=== PATIENT | male | born 1940 | race Caucasian/White ===

== ENCOUNTER 2018-01-21 16:25 | Inpatient (IN) | payer MEDICARE, OTHER ==
[~2018-01-21] VITALS: Ht 167.6 cm; Wt 72.6 kg
--- NOTE | 2018-01-21 16:35 | NUR ---
BBRA FROM HOME FOR S/P FALL, ON THE GROUND X 6HRS, C/O WEAKNESS AND DIZZINESS. PATIENT IS A/OX 4. BREATHING EVEN AND UNLABORED. NO SOB, NAD, VITALS STABLE. NO NEURO DEFICITS NOTED. SAFETY AND COMFORT MEASURES IN PLACE. AWAITING MD ORDERS.
--- NOTE | 2018-01-21 17:05 | NUR ---
NEW IV STARTED ON LAC, 18G. BLOOD DRAWN AND SENT TO LAB.
[2018-01-21 17:24] LABS: BASOPHILS # (AUTO) 0.1 /CMM (0.0-0.2); BASOPHILS % (AUTO) 0.5 % (0.0-2.0); EOSINOPHILS % (AUTO) 0.2 % (0.0-6.0); HEMATOCRIT 45 % (39-51); HEMOGLOBIN 14.4 g/dL (13.5-17.5); LYMPHOCYTES # (AUTO) 0.6 /CMM (0.8-4.8); MEAN CORPUSCULAR HEMOGLOBIN 23 PG (26.0-33.0); MEAN CORPUSCULAR HGB CONC 32 g/dl (31.0-36.0); MEAN CORPUSCULAR VOLUME 72 fL (80-96); MONOCYTES % (AUTO) 5.4 % (2.0-12.0); NEUTROPHILS # (AUTO) 17.5 /CMM (1.8-8.9); NEUTROPHILS % (AUTO) 90.9 % (43.0-81.0); PLATELET COUNT (AUTO) 351 /CMM (150-450); RDW COEFFICIENT OF VARIATION 16.9 (11.5-15.0); RED BLOOD CELL COUNT(AUTO) 6.24 MIL/uL (4.5-6.0); WHITE BLOOD COUNT (AUTO) 19.2 K/uL (4.3-11.0)
[2018-01-21 17:28] LABS: CALCIUM, SERUM 8.9 mg/dL (8.5-10.1); CARBON DIOXIDE 26 mmol/L (21-32); CHLORIDE 105 mmol/L (98-107); CREATININE 1.2 mg/dL (0.6-1.3); GLUCOSE 94 mg/dL (74-106); POTASSIUM 3.6 mmol/L (3.5-5.1); SODIUM SERUM 140 mmol/L (136-145); UREA NITROGEN, BLOOD 19 mg/dL (7-18)
[2018-01-21] MEDS ORDERED: ALBUTEROL FS 2.5 MG/0.5 ML VIAL.NEB NEB ONE (17:30)
[2018-01-21] MEDS ORDERED: IPRATROPIUM NEB FS 0.5 MG/2.5 ML AMPUL.NEB NEB ONE (17:30)
[2018-01-21 17:32] LABS: INR 1.02 (0.85-1.15)
[2018-01-21 17:34] LABS: ALANINE AMINOTRANSFERASE 13 U/L (12-78); ALKALINE PHOSPHATASE 66 U/L (46-116); ASPARTATE AMINOTRANSFERASE 18 U/L (15-37); BILIRUBIN,DIRECT 0.2 mg/dL (0.0-0.2); BILIRUBIN,TOTAL 0.9 mg/dL (0.2-1.0); TOTAL PROTEIN, SERUM 6.7 g/dL (6.4-8.2)
[2018-01-21] MEDS ORDERED: IPRATROPIUM NEB FS 0.5 MG/2.5 ML AMPUL.NEB ONE (17:38)
[2018-01-21] MEDS ORDERED: ALBUTEROL FS 2.5 MG/3 ML VIAL.NEB ONE (17:38)
--- NOTE | 2018-01-21 17:40 | NUR ---
RT AT BEDSIDE FOR BREATHING TX.
[2018-01-21 18:05] LABS: BAND % (MANUAL) 1 % (0.0-5.0); LYMPHOCYTES % (MANUAL) 4 % (16-48); MONOCYTES % (MANUAL) 9 % (0-11.0); NEUTROPHILS % (MANUAL) 86 (42-76)
[2018-01-21] MEDS ORDERED: CEFTRIAXONE 1 G in IV D5W 50 ML IV ONE (18:30)
[2018-01-21] MEDS ORDERED: AZITHROMYCIN 500 MG in IV D5W 250 ML IV ONE (18:30)
[2018-01-21] MEDS ORDERED: CEFTRIAXONE 1GM BAG (ER ONLY) 50 ML IV ONE (18:36)
[2018-01-21] MEDS ORDERED: FLUO20CA36 PO (18:45)
[2018-01-21] MEDS ORDERED: OMEP40CA37 PO (18:45)
[2018-01-21] MEDS ORDERED: FLUT1DIS3 IH (18:45)
[2018-01-21] MEDS ORDERED: DIVA500T54 PO (18:45)
[2018-01-21] MEDS ORDERED: MECL-102 PO (18:45)
[2018-01-21] MEDS ORDERED: FLUT16SP BNOSTRILS (18:45)
[2018-01-21] MEDS ORDERED: HYDR500C2 PO (18:45)
[2018-01-21] MEDS ORDERED: BUPR-96 PO (18:45)
[2018-01-21] MEDS ORDERED: ALPR0.255 PO (18:45)
--- NOTE | 2018-01-21 18:53 | NUR ---
RECEIVED VERBAL ADMITTING ORDERS FROM DR. CAVANAUGH.
[2018-01-21 19:11] LABS: ALANINE AMINOTRANSFERASE 10 U/L (12-78); ALBUMIN 2.9 g/dL (3.4-5.0); ALKALINE PHOSPHATASE 58 U/L (46-116); ASPARTATE AMINOTRANSFERASE 19 U/L (15-37); BILIRUBIN,DIRECT 0.2 mg/dL (0.0-0.2); TOTAL PROTEIN, SERUM 6.4 g/dL (6.4-8.2)
[2018-01-21 19:14] LABS: TROPONIN I < 0.017 ng/mL (0.00-0.056)
--- NOTE | 2018-01-21 19:15 | NUR ---
REPORT GIVEN TO DEREK STOREY FOR TESFAYE.
[2018-01-21 19:18] LABS: APPEARANCE,URINE Cloudy (CLEAR); BILIRUBIN,URINE SMALL (NEGATIVE); BLOOD, URINE Negative Ery/uL (NEGATIVE); COLOR,URINE Other (YELLOW); KETONES,URINE Trace (NEGATIVE); LEUKOCYTE ESTERASE ,URINE Negative (NEGATIVE); NITRITE, URINE Negative (NEGATIVE); PH,URINE 6.5 (5.0-8.0); PROTEIN,URINE 30 mg/dl (NEGATIVE); UGLUCOSE Negative (NEGATIVE)
[2018-01-21 19:23] LABS: BACTERIA,URINE Rare /HPF (None Seen); RBC,URINE NONE SEEN /HPF (0-2); SQUAMOUS EPITHELIAL CELL,UR Few /HPF (None Seen); WBC,URINE NONE SEEN /HPF (0-3)
[2018-01-21 20:50] VITALS: BP 110/71
[2018-01-21 21:00] VITALS: BP 110/71
--- NOTE | 2018-01-21 21:00 | NUR ---
RN ADMITTING NOTES RECEIVED REPORT OPERATIONS CONSULTANTCORDELIA FINCH. Pt ARRIVED TO FLOOR VIA GURNEY. Pt IS A/OX4, VERBAL, ABLE TO MAKE NEEDS KNOWN. NO S/S OF ACUTE DISTRESS OR SEVERE SOB NOTED. ON TELE. IV ACCESS ON LAC #18G. SAFETY MEASURES IN PLACE. BED LOW, LOCKED, HOB ELEVATED, SIDE RAILS UP, CALL LIGHT AND BEDSIDE TABLE WITHIN REACH. WILL CONTINUE TO MONITOR Pt THROUGHOUT THE NIGHT FOR SAFETY.
[2018-01-21] MEDS ORDERED: HYDROCODONE/APAP 5/325MG 1 EACH TABLET PO PRN (23:30)
[2018-01-21] MEDS ORDERED: ACETAMINOPHEN 325 MG TABLET PO PRN (23:30)
[2018-01-21] MEDS: Potassium Chloride 20 MEQ in IV NS 0.9% 1,000 ML IV SCH (23:30)
[2018-01-22] VITALS (7 sets, daily range): BP systolic 98–112; BP diastolic 52–65
[2018-01-22] MEDS ORDERED: PIPERACILLIN /TAZOBACTAM 3.375 G VIAL IV ONE ×2 (00:23→06:03)
[2018-01-22] MEDS ORDERED: IV PREMIX NS +20MEQ KCL 1 L IV ONE (00:37)
[2018-01-22] MEDS ORDERED: ALBUTEROL FS 2.5 MG/0.5 ML VIAL.NEB NEB PRN (02:00)
[2018-01-22] MEDS ORDERED: IPRATROPIUM NEB FS 0.5 MG/2.5 ML AMPUL.NEB NEB PRN (02:00)
[2018-01-22] MEDS ORDERED: ALPRAZOLAM 0.25 MG TABLET PO PRN ×2 (04:30→08:30)
[2018-01-22] MEDS ORDERED: MECLIZINE HCL 12.5 MG TABLET PO PRN (04:30)
[2018-01-22] MEDS: PIPERACILLIN /TAZOBACTAM 3.375 G in IV D5W 50 ML IV SCH ×6 (06:18→23:34)
--- NOTE | 2018-01-22 06:41 | NUR ---
RN CLOSING NOTES NO SIGNIFICANT CHANGES IN Pt's CONDITION. Pt REMAINS IN STABLE CONDITION DURING THIS TIME. NO S/S OF ACUTE DISTRESS OR SEVERE SOB NOTED DURING THE NIGHT. TELE READING SR 94. ALL NEEDS MET AND ATTENDED TO. SAFETY MEASURES IN PLACE. WILL ENDORSE TO DAYSHIFT RN FOR Pt's TESFAYE.
--- NOTE | 2018-01-22 07:15 | NUR ---
FAC ENGINEER OPENING NOTES. PT RECEIVED A&0X3, AWAKE AND RESTING IN BED. PT WITH O2 VIA NC AT 2LPM, SAO2 94%, PT ENCOURAGED TO DEEP BREATHE AND COUGH. PT AUSCULTATED WITH R SIDE RHONCHI. PT DENIES SOB BUT REPORTS SOME PLEURITIC PAIN. PT WITH IVC AT LAC G#18 INTACT AND OPERATIONAL. PT BED IN LOWEST LOCKED POSITION WITH HANDRAILSX2 AND CALL GUZMÁN WITHIN REACH. PT BRIEFED ON TODAY'S POC AND IS WITHOUT CONCERN OR COMPLAINT AT THIS TIME.
[2018-01-22 07:51] LABS: HEMATOCRIT 38 % (39-51); HEMOGLOBIN 12.2 g/dL (13.5-17.5); LYMPHOCYTES # (AUTO) 1.1 /CMM (0.8-4.8); LYMPHOCYTES % (AUTO) 4.5 % (20.0-44.0); MEAN CORPUSCULAR HEMOGLOBIN 23 PG (26.0-33.0); MEAN CORPUSCULAR HGB CONC 32 g/dl (31.0-36.0); MEAN CORPUSCULAR VOLUME 72 fL (80-96); MONOCYTES # (AUTO) 0.8 /CMM (0.1-1.30); MONOCYTES % (AUTO) 3.5 % (2.0-12.0); NEUTROPHILS # (AUTO) 22.1 /CMM (1.8-8.9); PLATELET COUNT (AUTO) 314 /CMM (150-450); RED BLOOD CELL COUNT(AUTO) 5.24 MIL/uL (4.5-6.0)
[2018-01-22 08:01] LABS: CALCIUM, SERUM 8.4 mg/dL (8.5-10.1); CARBON DIOXIDE 24 mmol/L (21-32); CHLORIDE 104 mmol/L (98-107); CREATININE 1.1 mg/dL (0.6-1.3); GLUCOSE 93 mg/dL (74-106); POTASSIUM 3.8 mmol/L (3.5-5.1); SODIUM SERUM 140 mmol/L (136-145); UREA NITROGEN, BLOOD 22 mg/dL (7-18)
[2018-01-22] MEDS ORDERED: HYDROXYUREA 500 MG CAPSULE PO SCH (09:00)
[2018-01-22] MEDS ORDERED: BUPROPION XL 150 MG TAB.ER.24 PO SCH (09:00)
[2018-01-22] MEDS ORDERED: FLUTICASONE PROPIONATE 16 GM BOTTLE NS SCH (09:00)
[2018-01-22] MEDS ORDERED: DIVALPROEX SODIUM 500 MG TABLET.DR PO SCH (09:00)
[2018-01-22] MEDS ORDERED: FLUOXETINE HCL 20 MG CAPSULE PO SCH (09:00)
[2018-01-22] MEDS ORDERED: MECLIZINE HCL 25 MG TABLET PO SCH (09:00)
[2018-01-22] MEDS ORDERED: FLUTICASONE/SALMETEROL DISKUS IH SCH (09:00)
[2018-01-22] MEDS: BUPROPION XL 150 MG TAB.ER.24 PO SCH (09:16)
[2018-01-22] MEDS: FLUOXETINE HCL 20 MG CAPSULE PO SCH (09:16)
[2018-01-22] MEDS: HYDROXYUREA 500 MG CAPSULE PO SCH (09:16)
[2018-01-22] MEDS: FLUTICASONE PROPIONATE 16 GM BOTTLE NS SCH (09:24)
[2018-01-22] MEDS: FLUTICASONE/VILANTEROL 1 EACH BLST.W.DEV IH SCH (09:24)
[2018-01-22 09:25] LABS: BAND % (MANUAL) 20 % (0.0-5.0); LYMPHOCYTES % (MANUAL) 10 % (16-48); MONOCYTES % (MANUAL) 2 % (0-11.0); NEUTROPHILS % (MANUAL) 68 (42-76)
[2018-01-22] MEDS: DIVALPROEX SODIUM 500 MG TABLET.DR PO SCH ×2 (09:26→21:10)
[2018-01-22] MEDS: PANTOPRAZOLE 40 MG TABLET.DR PO SCH (09:26)
[2018-01-22] MEDS: Potassium Chloride 20 MEQ in IV NS 0.9% 1,000 ML IV SCH (13:55)
--- NOTE | 2018-01-22 15:30 | NUR ---
HOME HEALTH PROVIDER NOTES. PT WITH VTE RISK SCORE 5, MD INFORMED, MD REQUESTING NO SCDS AND LOVENOX 40MG DAILY. ORDERS PLACED.
--- NOTE | 2018-01-22 15:49 | NUR ---
Professor Of Communication consult was requested from Dr. Mak in regards to elderly pt. living alone. Pt is a 77 year old male who was admitted to [facility] for falling on the floor for 6 hours. SW met with pt. at his bedside. Patient is oriented x3. Patient reported that it is March 2018. Patient currently resides [place] [address] [place] [address]. Patients primary contact is his sister Bc ([phone] and grandson Norbert ([phone]). Patient denies use of alcohol, drugs, or cigarettes. Pt receives $2450 from his [facility]. Pt reports that he has been diagnosed with Bipolar disorder and currently sees Dr. Isaac ([address] [place] [address]; [phone]). Pt. reports that he has never been hospitalized. Pt does not have any suicidal ideation or homicidal ideation. Pt denies any visual or auditory hallucinations. Pt reports that he does not want to go to SNF or a Board & Care. Pt reports that he wants to go back home. SW asked pt. if he would like to speak to case management in regards to more information on assisted living and pt. agreed. LUIS F spoke to CORDELIA Weller in regards to pt.s disposition and discharge plan. Plan: Case Management will give more information on Assisted Living Facilities. Pt. will be discharged home [address] [place] [address]; [phone].
[2018-01-22] MEDS: ENOXAPARIN SODIUM 40 MG/0.4 ML DISP.SYRIN SQ SCH (16:06)
--- NOTE | 2018-01-22 18:05 | NUR ---
TECHNOLOGY ADMINISTRATOR CLOSING NOTES. PT REMAINS A&0X3, AWAKE AND RESTING IN BED. PT WITH O2 VIA NC AT 2LPM. PT WITH IVC AT LAC G#18 INTACT AND OPERATIONAL. PT REPORTING SOME MINOR BACK PAIN, DECLINES ANALGESIA. PT BED IN LOWEST LOCKED POSITION WITH HANDRAILSX2 AND CALL GUZMÁN WITHIN REACH. ALL DAY NURSE DUTIES ATTENDED TO AND PT IS WITHOUT CONCERN OR COMPLAINT AT THIS TIME. WILL ENDORSE TO NIGHT NURSE AT BEDSIDE FOR TESFAYE.
--- NOTE | 2018-01-22 19:35 | NUR ---
TRANSITIONAL NURSE INITIAL NOTES RECEIVED PT SITTING UPRIGHT IN BED. AWAKE AND RESPONSIVE. RESPIRATIONS ARE EVEN AND UNLABORED, NOT IN ANY ACUTE DISTRESS NOTED. CURRENTLY ON O2 @3L/MIN, SATURATING WELL. DENIES ANY PAIN AT THIS TIME. IV SITE INTACT, NO INFILTRATION NOTED. EDUCATED PT ON DEEP BREATHING AND COUGHING TO BE ABLE TO EXPECTORATE SPUTUM. HOB KEPT ELEVATED TO FACILITATE BREATHING. PT PERFORMED RETURNED DEMONSTRATION. SAFETY MEASURES ARE IN PLACE. INSTRUCTED PT TO USE CALL LIGHT WHEN ASSISTANCE IS NEEDED, CALL LIGHT IS LEFT WITHIN REACH. WILL CONTINUE TO MONITOR.
[2018-01-23] VITALS: BP 111/59
[2018-01-23] MEDS: Potassium Chloride 20 MEQ in IV NS 0.9% 1,000 ML IV SCH (02:26)
[2018-01-23 04:00] VITALS: BP 108/63
[2018-01-23] MEDS: PIPERACILLIN /TAZOBACTAM 3.375 G in IV D5W 50 ML IV SCH ×2 (05:32→12:27)
--- NOTE | 2018-01-23 06:08 | NUR ---
ASSISTED LIVING EXECUTIVE DIRECTOR CLOSING NOTES ALL DUE MEDS GIVEN, NEEDS MET AND ANTICIPATED. EASILY AROUSABLE, ALERT AND RESPONSIVE. RESPIRATIONS ARE EVEN AND UNLABORED, NOT IN ANY ACUTE DISTRESS NOTED. CURRENTLY ON O2 @3L/MIN VIA NC, SATURATING AT 95%. DENIES ANY PAIN THROUGHOUT SHIFT. NO C/OB CHEST PAIN, N/V. IV TO LAC INTACT, NO INFILTRATION NOTED. DRESSING KEPT CLEAN AND DRY. SAFETY MEASURES ARE IN PLACE. BED IS IN ITS LOW AND LOCKED POSITION. REMINDED PT TO USE CALL LIGHT WHEN ASSISTANCE IS NEEDED.
[2018-01-23 07:00] LABS: EOSINOPHILS # (AUTO) 0.2 /CMM (0.0-0.7); EOSINOPHILS % (AUTO) 1.4 % (0.0-6.0); HEMATOCRIT 36 % (39-51); HEMOGLOBIN 11.3 g/dL (13.5-17.5); LYMPHOCYTES # (AUTO) 1.2 /CMM (0.8-4.8); LYMPHOCYTES % (AUTO) 7.3 % (20.0-44.0); MEAN CORPUSCULAR HEMOGLOBIN 23 PG (26.0-33.0); MEAN CORPUSCULAR HGB CONC 32 g/dl (31.0-36.0); MEAN CORPUSCULAR VOLUME 73 fL (80-96); MONOCYTES # (AUTO) 0.6 /CMM (0.1-1.30); MONOCYTES % (AUTO) 3.6 % (2.0-12.0); NEUTROPHILS # (AUTO) 14.2 /CMM (1.8-8.9); NEUTROPHILS % (AUTO) 87.7 % (43.0-81.0); PLATELET COUNT (AUTO) 269 /CMM (150-450); RDW COEFFICIENT OF VARIATION 18.9 (11.5-15.0); RED BLOOD CELL COUNT(AUTO) 4.89 MIL/uL (4.5-6.0); WHITE BLOOD COUNT (AUTO) 16.2 K/uL (4.3-11.0)
[2018-01-23 07:09] LABS: CALCIUM, SERUM 8.1 mg/dL (8.5-10.1); CARBON DIOXIDE 26 mmol/L (21-32); CHLORIDE 109 mmol/L (98-107); CREATININE 0.9 mg/dL (0.6-1.3); GLUCOSE 83 mg/dL (74-106); POTASSIUM 3.9 mmol/L (3.5-5.1); SODIUM SERUM 143 mmol/L (136-145); UREA NITROGEN, BLOOD 25 mg/dL (7-18)
--- NOTE | 2018-01-23 07:20 | NUR ---
FLOW NURSE OPENING NOTES. PT RECEIVED A&0X3, SLEEP AND EASILY WOKEN BY NAME. PT WITH O2 VIA NC AT 2LPM, SAO97%. PT AUSCULTATED WITH R SIDE RHONCHI. PT WITH IVC AT LAC G#18 INTACT AND OPERATIONAL. PT BED IN LOWEST LOCKED POSITION WITH HANDRAILSX2 AND CALL GUZMÁN WITHIN REACH. PT BRIEFED ON TODAY'S POC AND IS WITHOUT CONCERN OR COMPLAINT AT THIS TIME.
[2018-01-23] MEDS: PANTOPRAZOLE 40 MG TABLET.DR PO SCH (07:30)
[2018-01-23 08:00] VITALS: BP 109/60
[2018-01-23] MEDS ORDERED: LEVO500T75 PO (08:28)
[2018-01-23] MEDS ORDERED: LEVOFLOXACIN (500MG) 500 MG TABLET PO SCH (09:00)
[2018-01-23] MEDS: BUPROPION XL 150 MG TAB.ER.24 PO SCH (09:11)
[2018-01-23] MEDS: FLUTICASONE PROPIONATE 16 GM BOTTLE NS SCH (09:11)
[2018-01-23] MEDS: DIVALPROEX SODIUM 500 MG TABLET.DR PO SCH (09:11)
[2018-01-23] MEDS: FLUOXETINE HCL 20 MG CAPSULE PO SCH (09:11)
[2018-01-23] MEDS: FLUTICASONE/VILANTEROL 1 EACH BLST.W.DEV IH SCH (09:11)
[2018-01-23] MEDS: HYDROXYUREA 500 MG CAPSULE PO SCH (09:12)
[2018-01-23] MEDS: ENOXAPARIN SODIUM 40 MG/0.4 ML DISP.SYRIN SQ SCH (09:19)
[2018-01-23 09:20] LABS: EOSINOPHILS % (MANUAL) 3 % (0-4); LYMPHOCYTES % (MANUAL) 6 % (16-48); MONOCYTES % (MANUAL) 3 % (0-11.0); NEUTROPHILS % (MANUAL) 88 (42-76)
--- NOTE | 2018-01-23 15:30 | NUR ---
RN D.C NOTES. PT PREPARED FOR D/C PER MD. PT REMAINS A&0X3. PT WITH O2 VIA NC AT 2LPM, SAO97%. PT DENIES PAIN. PT IVC REMOVED AND NAD AT SITE. PT ENDORSED TO TAMARA AT [facility]. PT BRIEFED ON SO D/C PACKET AND IS VERBALIZING UNDERSTANDING, RESOURCES AND INTENT TO FOLLOW POC. WOUND DOCUMENTATION UPDATED, AND WOUND CARE ORDERED. PT WITH ALL BELONGINGS AND DOCUMENT SIGNED, ROOM CHECKED AT EXIT. ALL DAY NURSE DUTIES ATTENDED TO. PT LEFT VIA ULISSESRMALLY WITH EMT CREW. PT WITHOUT CONCERN OR COMPLAINT.
== END 2018-01-23 15:20 | DRG 871 ==
LOC: ER 16:27 → TELE 20:58 → MED 01-23 08:13
PROVIDERS: ADMIT Internal Medicine; ATTEND Internal Medicine
DX: A41.9 Sepsis, unspecified organism (principal); J18.9 Pneumonia, unspecified organism; J96.00 Acute respiratory failure, unspecified whether with hypoxia or hypercapnia; J44.1 Chronic obstructive pulmonary disease with (acute) exacerbation; J44.0 Chronic obstructive pulmonary disease with (acute) lower respiratory infection; D45 Polycythemia vera; F31.9 Bipolar disorder, unspecified; J45.909 Unspecified asthma, uncomplicated
CPT/HCPCS: 36415; 70450-TC; 71045-TC; 80048-TC; 80076-TC; 81000-TC; 82550-TC; 82962-TC; 83605-TC; 84484-TC; 85025-TC; 85730-TC; 87040-TC; 87081-TC; 87086-TC; 97116-TC; 97530-TC; A4606; J0456; J0696; J1650; J2543; J3480; J3490; J7030; J7060; J8597; Z7610

== ENCOUNTER 2018-06-26 18:52 | Inpatient (IN) | payer OTHER ==
[~2018-06-26] VITALS: Ht 170.2 cm; Wt 73.5 kg
[~2018-06-26 18:52] MED LIST: ALPR0.255 PO; BUPR-96 PO; DIVA500T54 PO; FLUO20CA36 PO; FLUT16SP BNOSTRILS; FLUT1DIS3 IH; HYDR500C2 PO; LEVO500T75 PO; MECL-102 PO; OMEP40CA37 PO
[2018-06-26 19:51] LABS: BASOPHILS # (AUTO) 0.2 /CMM (0.0-0.2); BASOPHILS % (AUTO) 1.6 % (0.0-2.0); EOSINOPHILS % (AUTO) 3.5 % (0.0-6.0); HEMATOCRIT 49 % (39-51); LYMPHOCYTES # (AUTO) 1.3 /CMM (0.8-4.8); LYMPHOCYTES % (AUTO) 13.5 % (20.0-44.0); MEAN CORPUSCULAR HEMOGLOBIN 23 PG (26.0-33.0); MEAN CORPUSCULAR HGB CONC 31 g/dl (31.0-36.0); MEAN CORPUSCULAR VOLUME 73 fL (80-96); MONOCYTES # (AUTO) 0.6 /CMM (0.1-1.30); MONOCYTES % (AUTO) 5.8 % (2.0-12.0); NEUTROPHILS # (AUTO) 7.5 /CMM (1.8-8.9); NEUTROPHILS % (AUTO) 75.6 % (43.0-81.0); PLATELET COUNT (AUTO) 457 /CMM (150-450); RDW COEFFICIENT OF VARIATION 18.8 (11.5-15.0); RED BLOOD CELL COUNT(AUTO) 6.64 MIL/uL (4.5-6.0); WHITE BLOOD COUNT (AUTO) 9.9 K/uL (4.3-11.0)
[2018-06-26] MEDS ORDERED: ONDANSETRON HCL/PF 4 MG/2 ML VIAL ONE (19:55)
[2018-06-26] MEDS ORDERED: MORPHINE SULFATE INJ 4 MG/ML DISP.SYRIN ONE ×2 (19:56→21:40)
[2018-06-26 20:00] LABS: CALCIUM, SERUM 9.1 mg/dL (8.5-10.1); CARBON DIOXIDE 29 mmol/L (21-32); CHLORIDE 106 mmol/L (98-107); GLUCOSE 99 mg/dL (74-106); POTASSIUM 4.3 mmol/L (3.5-5.1); SODIUM SERUM 136 mmol/L (136-145); UREA NITROGEN, BLOOD 22 mg/dL (7-18)
[2018-06-26] MEDS ORDERED: ONDANSETRON HCL/PF 4 MG/2 ML VIAL IVP ONE (20:00)
[2018-06-26] MEDS ORDERED: MORPHINE SULFATE INJ 2 MG/ML DISP.SYRIN IV ONE ×2 (20:00→22:00)
[2018-06-26 20:04] LABS: INR 1.12 (0.85-1.15)
[2018-06-26 20:08] LABS: TROPONIN I < 0.017 ng/mL (0.00-0.056)
[2018-06-26 20:11] LABS: ALANINE AMINOTRANSFERASE 15 U/L (12-78); ALBUMIN 3.1 g/dL (3.4-5.0); ALKALINE PHOSPHATASE 73 U/L (46-116); ASPARTATE AMINOTRANSFERASE 14 U/L (15-37); BILIRUBIN,DIRECT 0.1 mg/dL (0.0-0.2); BILIRUBIN,TOTAL 0.5 mg/dL (0.2-1.0)
--- NOTE | 2018-06-26 20:22 | NUR ---
BIB SELF C/O LT SHOULDER, LT HAND, LT KNEE PAIN S/P GLF WHILE WALKING HIS DOG, HEMATOMA ON RT FOREHEAD, NO KO PER PT. AAOX3, DENIES NECK, BACK PAIN, N/V, DIZZINESS @ THIS TIME. PT SEEN & EVAL'D BY NEETA NICK. MEDICATED FOR PAIN PER ERMD ORDER. AWAITING CT.
--- NOTE | 2018-06-26 20:31 | NUR ---
PT TO CT VIA [facility].
[2018-06-26 20:32] LABS: TOTAL PROTEIN, SERUM 6.2 g/dL (6.4-8.2)
[2018-06-26 21:07] LABS: BAND % (MANUAL) 14 % (0.0-5.0); EOSINOPHILS % (MANUAL) 3 % (0-4); LYMPHOCYTES % (MANUAL) 16 % (16-48); MONOCYTES % (MANUAL) 7 % (0-11.0); NEUTROPHILS % (MANUAL) 60 (42-76)
[2018-06-26] MEDS ORDERED: CLONIDINE HCL 0.1 MG TABLET PO ONE (22:00)
[2018-06-26] MEDS ORDERED: CLONIDINE HCL 0.1 MG TABLET ONE (22:04)
--- NOTE | 2018-06-26 22:08 | NUR ---
PT AAOX3, DENIES CP, SOB, DIZZINESS, N/V @ THIS TIME. PT BP ELEVATED MEDICATED PER SANDOVAL'S PA. PT FREDY WELL.
--- NOTE | 2018-06-26 22:21 | NUR ---
CALLED NURSE KORINA FOR MED.SURG BED
--- NOTE | 2018-06-26 23:13 | NUR ---
DENA LAMBERT FOR CONSULT - CANVAS WORKER IS DR. GONZALEZ
--- NOTE | 2018-06-26 23:53 | NUR ---
MS RN NOTES RECEIVED PT FROM ER VIA GURNEY , TRANSFERRED TO BED SAFELY WITH 4 STAFF. PT IS AWAKE , A/O X 4. VERBALLY RESPONSIVE. NO DISTRESS, NO SOB NOTED. RESPIRATION IS EVEN AND UNLABORED. SLING IN PLACE. IV SITE ON RIGHT HAND INTACT AND PATENT, NO S/S OF INFILTRATION NOTED. PT REFUSED TO REMOVE HIS SHIRT FOR SKIN ASSESSMENT DUE TO PAIN, RISK AND BENEFITS EXPLAINED, PT STILL REFUSED. PT C/O 2/10 PAIN , ICE PACK APPLIED PER PT IT HELPED RELIEVED WITH WITH THE PAIN. PT NOTIFIED REGARDING DIET ORDER ( NPO EXCEPT MEDS ) VERBALIZED UNDERSTANDING. ALL NEEDS ATTENDED AND MET. KEPT COMFORTABLE. SAFETY PRECAUTIONS OBSERVED. CALL LIGHT WITHIN REACH. WILL CONT TO MONITOR.
[2018-06-27] VITALS: BP 163/97
[2018-06-27] MEDS ORDERED: ZOLPIDEM TARTRATE 5 MG TABLET PO PRN (00:30)
[2018-06-27] MEDS ORDERED: ACETAMINOPHEN 325 MG TABLET PO PRN (00:30)
[2018-06-27] MEDS ORDERED: ONDANSETRON HCL/PF 4 MG/2 ML VIAL IV PRN (00:30)
[2018-06-27] MEDS: HYDROCODONE/APAP 5/325MG 1 EACH TABLET PO PRN ×2 (01:14→17:22)
--- NOTE | 2018-06-27 01:14 | NUR ---
NORCO GIVEN ORDERED, WITH LITTLE SIPS OF WATER. PT O NPO EXCEPT MEDS.
--- NOTE | 2018-06-27 03:47 | NUR ---
PT ASLEEP AT THIS TIME, APPEARS COMFORTABLE. AROUSES EASILY, A/O X 4. SAFETY PRECAUTIONS OBSERVED. CALL LIGHT WITHIN REACH. WILL CONT TO MONITOR.
--- NOTE | 2018-06-27 06:35 | NUR ---
MS RN NOTES PT IN BED, ASLEEP AT THIS TIME, APPEARS COMFORTABLE. AROUSES EASILY, A/O X 4. VERBALLY RESPONSIVE. NO DISTRESS, NO SOB NOTED. RESPIRATION IS EVEN AND UNLABORED. SLING IN PLACE. IV SITE ON RIGHT HAND INTACT AND PATENT, NO S/S OF INFILTRATION NOTED. ICE PACK APPLIED TO LEFT SHOULDER. NO C/O PAIN OR DISCOMFORT AT THIS TIME. ALL NEEDS ATTENDED AND MET. KEPT COMFORTABLE. SAFETY PRECAUTIONS OBSERVED. CALL LIGHT WITHIN REACH. WILL ENDORSE TO NEXT SHIFT FOR TESFAYE.
[2018-06-27 06:50] LABS: EOSINOPHILS % (AUTO) 0.5 % (0.0-6.0); HEMATOCRIT 45 % (39-51); HEMOGLOBIN 13.9 g/dL (13.5-17.5); LYMPHOCYTES % (AUTO) 7.7 % (20.0-44.0); MEAN CORPUSCULAR HEMOGLOBIN 24 PG (26.0-33.0); MEAN CORPUSCULAR HGB CONC 31 g/dl (31.0-36.0); MEAN CORPUSCULAR VOLUME 76 fL (80-96); MONOCYTES # (AUTO) 0.4 /CMM (0.1-1.30); MONOCYTES % (AUTO) 3.4 % (2.0-12.0); NEUTROPHILS # (AUTO) 11.7 /CMM (1.8-8.9); NEUTROPHILS % (AUTO) 88.4 % (43.0-81.0); PLATELET COUNT (AUTO) 408 /CMM (150-450); RDW COEFFICIENT OF VARIATION 20.4 (11.5-15.0); RED BLOOD CELL COUNT(AUTO) 5.92 MIL/uL (4.5-6.0); WHITE BLOOD COUNT (AUTO) 13.3 K/uL (4.3-11.0)
[2018-06-27 07:15] LABS: THYROID STIMULATING HORMONE 1.739 uIU/mL (0.358-3.74)
[2018-06-27 07:20] LABS: CALCIUM, SERUM 8.5 mg/dL (8.5-10.1); CARBON DIOXIDE 26 mmol/L (21-32); CHLORIDE 105 mmol/L (98-107); GLUCOSE 131 mg/dL (74-106); POTASSIUM 4.6 mmol/L (3.5-5.1); SODIUM SERUM 142 mmol/L (136-145); UREA NITROGEN, BLOOD 24 mg/dL (7-18)
--- NOTE | 2018-06-27 07:23 | NUR ---
SPOKE WITH MICHAEL, NURSING COMIC BOOK DESIGNER, SHE RECEIVED PT BELONGINGS BROUGHT BY ADRIANNA GARCÍA, AND PLACED IT IN THE SAFE BOX.
--- NOTE | 2018-06-27 07:31 | NUR ---
RN OPENING NOTES RECEIVED PATIENT IN BED RESTING, A/O X4. NO ACUTE DISTRESS, NO SOB. COMPLAINED OF PAIN 8/10 ON LEFT SHOULDER, WILL ADMINISTER PAIN MEDS ORDERED. IV SITE INTACT AND PATENT. KEPT PATIENT SAFE AND COMFORTABLE. BED IN LOW/LOCKED POSITION, SIDERAILS UPX2, CALL LIGHT IN REACH. WILL CONTINUE TO MONIOTR ACCORDINGLY
[2018-06-27 08:00] VITALS: BP 137/81
[2018-06-27] MEDS: HYDROMORPHONE INJ 0.5 MG/0.5 ML SYRINGE IV PRN ×2 (08:45→15:01)
[2018-06-27] MEDS ORDERED: FLUTICASONE PROPIONATE 16 GM BOTTLE NS SCH (09:00)
[2018-06-27] MEDS ORDERED: ALPRAZOLAM 0.5 MG TABLET PO PRN (09:00)
[2018-06-27] MEDS ORDERED: DIVALPROEX SODIUM 500 MG TABLET.DR PO SCH (09:00)
[2018-06-27] MEDS ORDERED: FLUTICASONE/VILANTEROL 1 EACH BLST.W.DEV IH SCH (09:00)
[2018-06-27] MEDS ORDERED: PANTOPRAZOLE 40 MG TABLET.DR PO SCH (09:00)
[2018-06-27] MEDS ORDERED: HYDROXYUREA 500 MG CAPSULE PO SCH (09:00)
[2018-06-27] MEDS ORDERED: FLUOXETINE HCL 20 MG CAPSULE PO SCH (09:00)
[2018-06-27] MEDS ORDERED: BUPROPION XL 150 MG TAB.ER.24 PO SCH (09:00)
--- NOTE | 2018-06-27 12:59 | NUR ---
RN NOTES KALPANA FROM [facility] [phone].
--- NOTE | 2018-06-27 13:41 | NUR ---
RN NOTES: ORTHO DORIS NI, "NO SURGERY, F/U WITH DR GONZALEZ IN OFFICE".
--- NOTE | 2018-06-27 13:44 | NUR ---
RN NOTES NOTIFIED DR CAVANAUGH OF ORTHO CONSULT. PER DR CAVANAUGH, DISCHARGE PATIENT TO SNF, CONTINUE PO MEDICATIONS.
--- NOTE | 2018-06-27 15:29 | NUR ---
RN NOTES PATIENT REPORTED THAT HE SPILLED HIS HOT COFFEE IN HIS RIGHT PORTION OF THE BODY. ASSESSED THE PATIENT, NO REDNESS, NO BLISTER, AND PER PATIENT "HE'S OK, NO PAIN". PICTURES TAKEN. MACHINIST AUTOMOTIVE DR AFSHAN SINGER MADE AWARE.. Addendum: 06/27/18 at 1610 by ANDER MONSON INCIDENT REPORT DONE. [id number]
[2018-06-27 16:00] VITALS: BP 124/76
--- NOTE | 2018-06-27 18:33 | NUR ---
RN CLOSING NOTES PATIENT IN STABLE CONDITION. ALL NEEDS ATTENDED AND PROVIDED. ALL DUE MEDS GIVEN, PAIN MEDS GIVEN PRN. PATIENT FOR DISCHARGE, REPORT GIVEN TO CORDELIA GREENE AT [facility]. DISCHARGE INSTRUCTIONS GIVEN TO PATIENT AND SNF RN, VERBALIZED UNDERSTANDING. KEPT PATIENT SAFE AND COMFORTABLE. BED IN LOW/LOCKED POSITION. SIDERAILS UPX2, CALL LIGHT IN REACH. WILL ENDORSE TO NIGHT RN FOR TESFAYE.
--- NOTE | 2018-06-27 19:21 | NUR ---
DISCHARGED PATIENT IN STABLE CONDITION PICKED UP BY WOOD INSPECTOR. DISCHARGE PAPERWORK GIVEN TO WOOD INSPECTOR. ALL BELONGINGS FROM SAFETY BOX AND CANE RETURNED TO PATIENT. REMOVED IV, APPLIED PRESSURE, NO BLEEDING, NO COMPLICATIONS. REMOVED NAME BAND.
== END 2018-06-27 19:25 | DRG 563 ==
LOC: ER 18:53 → MEDSG2 23:05 → MED 06-27 18:53
PROVIDERS: ADMIT Internal Medicine; ATTEND Internal Medicine
DX: S42.212A Unspecified displaced fracture of surgical neck of left humerus, initial encounter for closed fracture (principal); S42.292A Other displaced fracture of upper end of left humerus, initial encounter for closed fracture; S00.03XA Contusion of scalp, initial encounter; W18.39XA Other fall on same level, initial encounter; Y93.9 Activity, unspecified; Y92.89 Other specified places as the place of occurrence of the external cause; K21.9 Gastro-esophageal reflux disease without esophagitis; F41.9 Anxiety disorder, unspecified; D45 Polycythemia vera; F31.9 Bipolar disorder, unspecified; J44.9 Chronic obstructive pulmonary disease, unspecified; Y93.K1 Activity, walking an animal; S80.212A Abrasion, left knee, initial encounter; Z79.82 Long term (current) use of aspirin
CPT/HCPCS: 36415; 70450-TC; 71045-TC; 73020; 73060-TC; 73090-TC; 73130-TC; 73560-TC; 80048-TC; 80076-TC; 82962-TC; 84443-TC; 84484-TC; 85025-TC; 85730-TC; 87081-TC; A6403; J2270; J2405